=== PATIENT | female | born 1995 | race Two or more races ===

== ENCOUNTER 2016-11-07 17:51 | Emergency (ER) | payer OTHER ==
[2016-11-07] MEDS ORDERED: ONDANSETRON 4 MG/2ML 2 ML VIAL ONE (19:39)
[2016-11-07] MEDS ORDERED: IBUPROFEN 600 MG TABLET ONE (19:39)
[2016-11-07] MEDS ORDERED: SODIUM CHLORIDE 0.9% 2,000 ML ONE (19:39)
[2016-11-07] MEDS ORDERED: AZITHROMYCIN 250 MG TABLET ONE (19:40)
[2016-11-07] MEDS ORDERED: CODEINE/PROMETHAZINE 6.25mg/10mg/5ml SYRUP DOSE PO SCH (19:45)
[2016-11-07 20:01] LABS: ABSOLUTE NEUTROPHIL COUNT 5.8 K/mm3 (1.8-7.7); BASO % 0.4 % (0.2-1.0); EOS % 0.5 % (0.9-2.9); HEMATOCRIT 36.9 % (37.0-47.0); HEMOGLOBIN 11.4 gm/l (12.0-16.0); IMM NEUT # 0.1 K/mm3 (0-0.2); IMM NEUT% 0.9 % (0-1); LYMPH % 12.8 % (15-45); MEAN CELL VOLUME 84.4 fl (81.0-99.0); MEAN CORPUSCULAR HEMOGLOBIN 26.1 pg (27.0-31.0); MEAN CORPUSCULAR HGB CONC 30.9 g/dl (33.0-37.0); MONO # 0.9 (0.0-0.8); MONO % 11.8 % (4-12); NEUT % 73.6 % (43-75); PLATELET COUNT 291 K/mm3 (130-400); RED CELL DISTRIBUTION WIDTH 14.7 % (11.5-14.5)
[2016-11-07 20:11] LABS: ALB/GLOB RATIO 1.2 (>1.0); ALBUMIN 3.6 gm/dL (3.5-5.7); ALT/SGPT 13 U/L (7-52); BLOOD UREA NITROGEN 12 mg/dL (7-25); BUN/CREATININE RATIO 17 (6-20); CALCIUM 8.7 mg/dL (8.6-10.3)
--- NOTE | 2016-11-07 21:18 | RAD ---
CHEST - 2 VIEWS COMPARISON: Chest 2 views, 10/04/2008 HISTORY: Fever and cough for 3 days. FINDINGS: Views: Frontal and lateral chest Lungs: Normal Heart and vessels: Normal Trachea and bronchi: Normal Mediastinum and abby: Normal Costophrenic sulci: Normal Chest wall and bones: Normal. Upper abdomen: Normal. IMPRESSION: Negative 2 view chest.
== END 2016-11-07 21:39 | disposition home or self-care (01) ==
LOC: ED 17:51
DX: J09.X2 Influenza due to identified novel influenza A virus with other respiratory manifestations (principal); R05 Cough; J45.909 Unspecified asthma, uncomplicated
CPT/HCPCS: 84703; 85025; 80053; 71020; 87804; 99283 ×2; 96374; A9270 ×2; J2405; J7030